=== PATIENT | male | born 2000 | race Caucasian/White ===

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

== ENCOUNTER 2020-09-16 09:27 | Outpatient (CLI) | payer OTHER | END 2020-09-16 10:00 | disposition home or self-care (01) | LOC: RAD 09:27 | PROVIDERS: ATTEND Physical Medicine & Rehabilitation | DX: M41.85 Other forms of scoliosis, thoracolumbar region (principal) ==

== ENCOUNTER 2021-03-20 15:15 | Outpatient (CLI) | payer OTHER | END 2021-03-20 15:30 | disposition home or self-care (01) | LOC: PPH VACUNA 15:15 | PROVIDERS: ATTEND Emergency Medicine Pediatric Emergency Medicine | DX: Z23 Encounter for immunization (principal) ==

== ENCOUNTER 2022-09-11 16:38 | Emergency (ER) | payer OTHER ==
[~2022-09-11] VITALS: Ht 185.4 cm; Wt 83.9 kg
== END 2022-09-12 01:23 | disposition home or self-care (01) ==
LOC: ER 16:38
DX: R53.81 Other malaise (principal); A90 Dengue fever [classical dengue]

== ENCOUNTER 2024-05-07 10:03 | Outpatient (CLI) | payer OTHER | END 2024-05-07 10:04 | disposition home or self-care (01) | LOC: RAD 10:03 | PROVIDERS: ATTEND Specialist | DX: M41.83 Other forms of scoliosis, cervicothoracic region (principal) ==

== ENCOUNTER 2025-02-25 15:36 | Outpatient (CLI) | payer OTHER | END 2025-02-25 23:00 | disposition home or self-care (01) | LOC: RAD 15:36 | PROVIDERS: ATTEND Colon & Rectal Surgery | DX: L05.01 Pilonidal cyst with abscess (principal); I10 Essential (primary) hypertension ==